=== PATIENT | female | born 1995 | race Hispanic/Latino ===

== ENCOUNTER 2021-09-15 18:58 | Inpatient (IN) | payer BC, MEDICAID ==
[~2021-09-15] VITALS: Ht 154.9 cm; Wt 98.9 kg
[2021-09-15] MEDS ORDERED: MEPERIDINE-PF 50 MG/ML SYG IVP PRN (19:30)
[2021-09-15] MEDS ORDERED: LACTATED RINGERS 500 ML 500 ML IV PRN (19:30)
[2021-09-15] MEDS ORDERED: DINOPROSTONE 10 MG VAGINAL SUPP VG SCH (19:30)
[2021-09-15] MEDS ORDERED: EPHEDRINE SULFATE 50 MG/ML AMPULE IVP PRN (19:30)
[2021-09-15] MEDS ORDERED: PROMETHAZINE HCL 25 MG/ML 1ML AMPULE IM PRN (19:30)
[2021-09-15] MEDS ORDERED: NALOXONE HCL 0.4 MG/1 ML ML IV PRN (19:30)
[2021-09-15] MEDS ORDERED: ROPIVACAINE 0.2% 100ML VIAL 100 ML EP PRN (19:30)
[2021-09-15 19:54] LABS: APPEARANCE,URINE Clear (CLEAR); BILIRUBIN,URINE Small (NEGATIVE); COLOR,URINE Dark Yellow (YELLOW); GLUCOSE, URINE (UA) Negative (NEGATIVE); KETONES,URINE Trace mg/dL (NEGATIVE); LEUKOCYTE ESTERASE ,URINE Trace (NEGATIVE); NITRATE,URINE Negative (NEGATIVE); OCCULT BLOOD,URINE Negative (NEGATIVE); PH,URINE 6.5 (5.0-8.0); PROTEIN,URINE Trace mg/dL (NEGATIVE)
[2021-09-15 20:14] LABS: BACTERIA,URINE Moderate /HPF (None Seen); RBC,URINE 0-1 /HPF (0-1); SQUAMOUS EPITHELIAL CELL,UR Rare /HPF (0-2)
[2021-09-15 20:35] LABS: HEMATOCRIT 27.4 % (36-48); MEAN CORPUSCULAR HEMOGLOBIN 24.6 pg (27.0-33.0); MEAN CORPUSCULAR HGB CONC 30.3 g/dL (32.0-36.0); MEAN CORPUSCULAR VOLUME 81.3 fL (79-99); PLATELET COUNT (AUTO) 308 K/uL (130-400); RED BLOOD CELL COUNT(AUTO) 3.37 MIL/uL (4.00-5.50); RED CELL DISTRIBUTION WIDTH 16.3 % (11.0-15.5); WHITE BLOOD COUNT (AUTO) 8.1 K/uL (4.8-10.8)
[2021-09-15] MEDS: LACTATED RINGERS 1000ML 1,000 ML IV PRN (20:38)
[2021-09-15 21:08] VITALS: BP 112/55
[2021-09-16] MEDS: LACTATED RINGERS 1000ML 1,000 ML IV PRN ×2 (04:18→12:07)
[2021-09-16] MEDS: OXYTOCIN-LR 20 UNITS/1000 ML 1,000 ML IV SCH (08:45)
[2021-09-16] MEDS ORDERED: LIDOCAINE HCL 1% 20 ML VIAL ONE (16:31)
[2021-09-17 00:19] VITALS: BP 100/58
[2021-09-17] MEDS: OXYTOCIN-LR 20 UNITS/1000 ML 1,000 ML IV SCH (04:02)
[2021-09-17 07:18] LABS: HEPATITIS Bs ANTIGEN SCREEN P Negative (Negative)
[2021-09-17] MEDS ORDERED: MISOPROSTOL 200 MCG TABLET PR PRN (07:30)
[2021-09-17] MEDS ORDERED: METHYLERGONOVINE MALEATE 0.2 MG/1 ML ML IM PRN (07:30)
[2021-09-17] MEDS: LACTATED RINGERS 1000ML 1,000 ML IV PRN ×2 (07:31→15:58)
[2021-09-17] MEDS ORDERED: CEFAZOLIN SODIUM 1 GM VIAL IVP PRN (13:00)
[2021-09-17 14:04] LABS: HEMATOCRIT 26.5 % (36-48)
[2021-09-17] MEDS ORDERED: MORPHINE PF 100MG/10ML AMP IV ONE (17:13)
[2021-09-17] MEDS ORDERED: EPINEPHRINE PF 1MG AMP ONE (17:13)
[2021-09-17] MEDS ORDERED: CEFAZOLIN SODIUM 2 GM VIAL IV ONE (17:19)
[2021-09-17] MEDS ORDERED: ONDANSETRON 4MG INJ ONE (17:24)
[2021-09-17] MEDS ORDERED: MIDAZOLAM HCL 1 MG/ML 2ML VIAL ONE (17:49)
[2021-09-17] MEDS ORDERED: FENTANYL CITRATE PF 50 MCG/1 ML 2ML VIAL ONE (17:56)
[2021-09-17] MEDS ORDERED: ALBUMIN (HUMAN) 5% 250 ML IV ONE (18:23)
[2021-09-17] MEDS ORDERED: EPHEDRINE SULFATE 50 MG/ML AMPULE IM SCH (18:50)
[2021-09-17] MEDS ORDERED: PROMETHAZINE HCL 25 MG/ML 1ML AMPULE IM PRN (19:00)
[2021-09-17] MEDS ORDERED: IPRATROPIUM/ALBUTEROL SULFATE 3 ML SOLUTION IH PRN (19:00)
[2021-09-17] MEDS ORDERED: LACTATED RINGERS 1000ML 1,000 ML IV SCH (19:00)
[2021-09-17] MEDS ORDERED: OXYTOCIN-LR 20 UNITS/1000 ML 1,000 ML IV PRN (19:00)
[2021-09-17] MEDS ORDERED: DEXTROSE 5 %-0.45 % NACL 1,000 ML IV PRN (19:00)
[2021-09-17] MEDS ORDERED: 0.9%NACL 1000ML 1,000 ML IV SCH (19:00)
[2021-09-17] MEDS ORDERED: ONDANSETRON 4MG INJ IVP PRN (19:00)
[2021-09-17] MEDS ORDERED: MEPERIDINE-PF 75 MG/ML SYG IM PRN (19:00)
[2021-09-17 20:13] LABS: HEMATOCRIT 22.8 % (36-48)
[2021-09-17] MEDS ORDERED: LORATADINE 10 MG TABLET ONE (20:45)
[2021-09-17 22:30] VITALS: BP 111/47
[2021-09-17 23:50] VITALS: BP 111/69
[2021-09-17] MEDS ORDERED: FERR324T4 PO (23:50)
[2021-09-17] MEDS ORDERED: PREN1TAB80 PO (23:50)
[2021-09-18] MEDS: CEFAZOLIN SODIUM 1 GM VIAL IVP SCH ×2 (01:20→09:51)
[2021-09-18] MEDS ORDERED: ONDANSETRON 4MG INJ IVP PRN (02:00)
[2021-09-18 04:40] VITALS: BP 121/57
[2021-09-18 06:56] LABS: HEMATOCRIT 25.4 % (36-48); MEAN CORPUSCULAR HEMOGLOBIN 25.5 pg (27.0-33.0); MEAN CORPUSCULAR HGB CONC 30.7 g/dL (32.0-36.0); RED BLOOD CELL COUNT(AUTO) 3.06 MIL/uL (4.00-5.50); RED CELL DISTRIBUTION WIDTH 16.4 % (11.0-15.5); WHITE BLOOD COUNT (AUTO) 13.2 K/uL (4.8-10.8)
[2021-09-18 08:00] VITALS: BP 103/55
[2021-09-18] MEDS ORDERED: ACETAMINOPHEN WITH CODEINE 1 TAB TAB PO PRN (09:30)
[2021-09-18] MEDS ORDERED: DIPH,PERTUSS(ACELL),TET VAC/PF 0.5 ML VIAL IM SCH (09:30)
[2021-09-18] MEDS ORDERED: ACETAMINOPHEN 500 MG TABLET PO PRN (09:30)
[2021-09-18] MEDS ORDERED: HYDROCODONE/ACETAMINOPHEN 5/325 MG TAB PO PRN (09:30)
[2021-09-18] MEDS ORDERED: IBUPROFEN 600 MG TABLET PO PRN (09:30)
[2021-09-18] MEDS ORDERED: BISACODYL 10 MG SUPP.RECT RC PRN (09:30)
[2021-09-18] MEDS: SIMETHICONE 80 MG TAB.CHEW PO PRN ×2 (09:49→13:22)
[2021-09-18 12:12] VITALS: BP 110/67
[2021-09-18 16:05] VITALS: BP 74/35
[2021-09-18 16:56] VITALS: BP 109/62
[2021-09-18] MEDS ORDERED: DOCUSATE SODIUM 100 MG CAP PO SCH (21:00)
== END 2021-09-18 18:35 | disposition home or self-care (01) | DRG 788 ==
LOC: LDH 18:58 → WSH 09-17 22:20
PROVIDERS: ADMIT Obstetrics & Gynecology; ATTEND Obstetrics & Gynecology
PROC: 30233N1 Transfusion of Nonautologous Red Blood Cells into Peripheral Vein, Percutaneous Approach (ICD-10-PCS; 2021-09-17)
PROC: 3E0234Z Introduction of Serum, Toxoid and Vaccine into Muscle, Percutaneous Approach (ICD-10-PCS; 2021-09-17)
PROC: 10D00Z1 Extraction of Products of Conception, Low, Open Approach (ICD-10-PCS; principal; 2021-09-17 16:30)
DX: O99.02 Anemia complicating childbirth (principal); O61.9 Failed induction of labor, unspecified; O99.214 Obesity complicating childbirth; Z37.0 Single live birth; Z3A.40 40 weeks gestation of pregnancy; Z23 Encounter for immunization; D64.9 Anemia, unspecified
CPT/HCPCS: 36415; 59510; 81001; 85014; 85018; 85027; 86592; 86701; 86850; 86900; 86901; 86923; 87088; 87340; 87390; 90715; A4344; G0378; J0171; J0690; J2210; J2250; J2274; J2405; J2590; J3010; J3490; J7120; P9016; P9045